=== PATIENT | female | born 1980 | race African-American/Black ===

== ENCOUNTER 2017-02-01 18:43 | Emergency (ER) | payer OTHER ==
[~2017-02-01] VITALS: Ht 165.1 cm; Wt 92.1 kg
[2017-02-01 19:06] VITALS: BP 146/91
== END 2017-02-01 20:15 | disposition left against medical advice (07) ==
LOC: ER 18:43

== ENCOUNTER 2017-05-25 19:42 | Emergency (ER) | payer OTHER ==
[~2017-05-25] VITALS: Ht 165.1 cm; Wt 93.4 kg
[2017-05-25 20:36] LABS: Basophils # (auto) 0 uL; Basophils % (auto) 0.3 % (0.0-2.0); CONDITION Y; Eosinophils # (auto) 0 uL; Eosinophils % (auto) 0.4 % (0.0-7.0); Hematocrit 37.8 % (36.0-46.0); Hemoglobin 12.6 g/dL (12.2-16.2); Lymphocytes # (auto) 1.6 uL; Lymphocytes % (auto) 23.8 % (10.0-50.0); Mean Corpuscular Hemoglobin 29.5 pg (28.0-32.0); Mean Corpuscular Hgb Conc. 33.4 g/dL (32.0-36.0); Mean Corpuscular Volume 88.2 fL (80.0-100.0); Mean Platelet Volume 8.7 fL (7.4-10.4); Monocytes # (auto) 0.6 uL; Monocytes % (auto) 9.2 % (0.0-12.0); Neutrophils # (auto) 4.4 uL; Neutrophils % (auto) 66.3 % (37.0-80.0); Platelet Count (auto) 221 10^3/uL (140-450); Red Cell Distribution Width 13.7 % (11.6-16.0); White Blood Cell 6.6 10^3/uL (4.4-10.8)
[2017-05-25 20:58] LABS: Albumin 3.5 g/dL (3.4-5.0); Calcium 8.3 mg/dL (8.5-10.1); Potassium 3.4 mmol/L (3.5-5.1)
[2017-05-25 21:01] LABS: Bilirubin, Total 0.2 mg/dL (0.2-1.0); Total Protein 7.5 g/dL (6.4-8.2)
[2017-05-25 22:15] LABS: Urine Bilirubin Negative (Negative); Urine Blood Negative /uL (Negative); Urine Color Yellow (Yellow); Urine Glucose Normal (Normal); Urine Ketone Negative (Negative); Urine Mucus FEW (None Seen); Urine Nitrite POSITIVE (Negative); Urine RBC 1 /hpf (0 - 4); Urine Squamous Epithelial Cell MANY /hpf (<5); Urine Urobilinogen Normal (Negative); Urine pH 5.5 (5.0-8.0)
[2017-05-26] MEDS ORDERED: NALBUPHINE HCL 10 MG/1ml INJECTION IV ONE (01:15)
[2017-05-26] MEDS ORDERED: cefTRIAXone 1GM/50ML D5W 50 ML IV ONE (01:15)
[2017-05-26 02:30] VITALS: BP 126/70
== END 2017-05-26 02:51 | disposition home or self-care (01) ==
LOC: ER 19:42
DX: N39.0 Urinary tract infection, site not specified (principal); N94.6 Dysmenorrhea, unspecified
CPT/HCPCS: 36415; 74176; 80053; 81001; 84702; 85025; 96365; 96375; 99285; J0696; J2300; J7030

== ENCOUNTER 2017-09-01 15:16 | Emergency (ER) | payer MEDICAID ==
[~2017-09-01] VITALS: Ht 165.1 cm; Wt 91.3 kg
[2017-09-01 15:23] VITALS: BP 142/97
== END 2017-09-01 17:37 | disposition home or self-care (01) ==
LOC: ER 15:21
DX: G44.209 Tension-type headache, unspecified, not intractable (principal); R42 Dizziness and giddiness; R53.1 Weakness
CPT/HCPCS: 70450

== ENCOUNTER 2021-06-13 00:37 | Emergency (ER) | payer MEDICAID ==
[~2021-06-13] VITALS: Ht 165.1 cm; Wt 96.2 kg
[2021-06-13 01:08] VITALS: BP 137/93
== END 2021-06-13 04:27 | disposition left against medical advice (07) ==
LOC: ER 00:38
DX: H57.89 Other specified disorders of eye and adnexa (principal); Z53.21 Procedure and treatment not carried out due to patient leaving prior to being seen by health care provider

== ENCOUNTER 2022-05-26 11:00 | Emergency (ER) | payer MEDICAID ==
[~2022-05-26] VITALS: Ht 165.1 cm; Wt 97.7 kg
[2022-05-26 11:40] VITALS: BP 134/86
[2022-05-26] MEDS ORDERED: IBUPROFEN 800 MG TAB PO ONE (12:30)
[2022-05-26] MEDS ORDERED: IBUP800T27 PO (12:57)
== END 2022-05-26 13:10 | disposition home or self-care (01) ==
LOC: ER 11:13
DX: S83.92XA Sprain of unspecified site of left knee, initial encounter (principal); Z79.1 Long term (current) use of non-steroidal anti-inflammatories (NSAID); W01.0XXA Fall on same level from slipping, tripping and stumbling without subsequent striking against object, initial encounter; Y93.89 Activity, other specified; Y92.89 Other specified places as the place of occurrence of the external cause; Y99.8 Other external cause status
CPT/HCPCS: 73562

== ENCOUNTER 2023-11-02 00:06 | Emergency (ER) | payer MEDICAID ==
[~2023-11-02] VITALS: Ht 165.1 cm; Wt 95.5 kg
[~2023-11-02 00:06] MED LIST: IBUP-1456 PO
[2023-11-02 00:23] VITALS: BP 141/90; PULSE 76; RESP 18; TEMP 97.8; O2SAT 100
[2023-11-02] MEDS ORDERED: KETOROLAC TROMETH 60MG/2ML VIAL IM ONE (00:45)
[2023-11-02] MEDS ORDERED: NAP500T PO (00:46)
== END 2023-11-02 00:58 | disposition home or self-care (01) ==
LOC: ER 00:06
DX: M79.18 Myalgia, other site (principal); M54.50 Low back pain, unspecified
CPT/HCPCS: 96372; 99283; J1885